=== PATIENT | female | born 1985 | race Caucasian/White ===

== ENCOUNTER 2020-04-04 05:14 | Inpatient (IN) | payer OTHER ==
[2020-04-04] MEDS ORDERED: LIDOCAINE 0.5% (PF) 5 MG/ML (50 ML SDV) SQ PRN (05:27)
[2020-04-04] MEDS ORDERED: METHYLERGONOVINE 0.2 MG/ML 1 ML AMP IM PRN (05:27)
[2020-04-04] MEDS ORDERED: CARBOPROST TROMETHAMINE 250 MCG/ML 1 ML AMP IM PRN (05:27)
[2020-04-04] MEDS ORDERED: TERBUTALINE 1 MG/ML VIAL SQ PRN (05:27)
[2020-04-04] MEDS ORDERED: OXYTOCIN 10 UNIT/ML 1 ML VIAL IM PRN (05:27)
[2020-04-04] MEDS: LACTATED RINGERS 1,000 ML IV SCH ×3 (05:57→06:44)
[2020-04-04 06:09] LABS: Basophils # (A) 0.1 k/uL (0-0.2); Basophils % (A) 1 %; Eosinophils # (A) 0.1 k/uL (0-0.7); Eosinophils % (A) 1 %; HCT 41.9 % (34.0-46.0); HGB 13.7 gm/dL (11.4-16.0); Lymphocytes % (A) 16 %; MCH 29.8 pg (25.0-35.0); MCHC 32.6 g/dL (31.0-37.0); MCV 91.3 fL (80.0-100.0); Monocytes # (A) 0.6 k/uL (0-1.0); Monocytes % (A) 5 %; Neutrophils # (A) 9.7 k/uL (1.3-7.7); Neutrophils % (A) 76 %; Platelet Count 189 k/uL (150-450); RBC 4.59 m/uL (3.80-5.40); RDW 13.4 % (11.5-15.5); WBC 12.6 k/uL (3.8-10.6)
[2020-04-04] MEDS ORDERED: SODIUM CHLORIDE 0.9% 100 ML BAG ONE (06:15)
[2020-04-04] MEDS ORDERED: fentaNYL (PF) 50 MCG/ML 5 ML AMP ONE (06:15)
[2020-04-04] MEDS ORDERED: ROPIVACAINE 5MG/ML 20ML VIAL ONE (06:15)
--- NOTE | 2020-04-04 08:14 | P.HPOB ---
History of Present Illness H&P Date: 04/04/20 Chief Complaint: Labor at 39-3/7 This is a 34-year-old 1 para 0 woman with an estimated due date of 04/08/2020 who presents in spontaneous active labor at 39-3/7 weeks gestation. She reports labor started at approximately 2 AM. She presented to labor and delivery triage she was uncomfortable and was actively laboring and found to be centimeters dilated. She denies leakage of fluid or vaginal bleeding. Her has been uncomplicated. She is known rubella nonimmune. Laboratory data: Group B strep negative, blood type O+, antibody screen negative, rubella nonimmune, VDRL nonreactive, hep B surface antigen negative, HIV negative, gonorrhea and clinic cultures negative, glucose tolerance testing within normal limits. Upon my initial evaluation patient is resting comfortably with an epidural in place and the cervix is completely dilated, 100% effaced and the vertex in the 0 station. Amniotic membranes or not palpated no as there any fluid on exam. heart tones are category 2. She is kevin every 1-3 minutes spontaneously. Review of Systems All systems: negative Past Medical History Past Medical History: No Reported History History of Any Multi-Drug Resistant Organisms: None Reported Additional Past Surgical History / Comment(s): [place] tooth extraction Past Anesthesia/Blood Transfusion Reactions: No Reported Reaction Past Psychological History: No Psychological Hx Reported Smoking Status: Never smoker Past Drug Use History: None Reported - Past Family History Mother Additional Family Medical History / Comment(s): Lupus, Fibromyalgia, Stent placement Father Family Medical History: Diabetes Mellitus Brother(s) Additional Family Medical History / Comment(s): Depression Medications and Allergies Home Medications Medication Instructions Recorded Confirmed Type Pnv No.95/Ferrous Fum/Folic AC 1 each PO DAILY 04/04/20 04/04/20 History [ Multivitamin Tablet] Allergies Allergy/AdvReac Type Severity Reaction Status Date / Time No Known Allergies Allergy Verified 04/04/20 05:26 Exam Vital Signs Temp Pulse Resp BP 04/04/20 05:50 97.9 F 83 18 148/89 Intake and Output 04/03/20 04/04/20 04/04/20 22:59 06:59 14:59 Other: # Voids 2 Weight 87.09 kg Results Result Diagrams: 04/04/20 05:45 Abnormal Lab Results - Last 24 Hours (Table) 04/04/20 Range/Units 05:45 WBC 12.6 H (3.8-10.6) k/uL Neutrophils # 9.7 H (1.3-7.7) k/uL Assessment and Plan (1) Spontaneous onset of labor Current Visit: Yes Status: Acute Code(s): OMQ6202 - SNOMED Code(s): 8 6354224 (2) Term Current Visit: Yes Status: Acute Code(s): Z34.90 - ENCNTR FOR SUPRVSN OF NOR MAL , UNSP, UNSP TRIMESTER SNOMED Code(s): 31133259 (3) Rubella non-immune status, antepartum Current Visit: Yes Status: Acute Code(s): O99.89 - OTH DISEASES AND CONDI TIONS COMPL PREG/CHLDBRTH; Z28.3 - UNDERIMMUNIZATION STATUS SNOMED Code(s): 077905566 Plan: 34-year-old 1 para 0 woman at 39-3/7 weeks gestation in advanced active labor. Rubella nonimmune. Possible prolonged rupture of membranes, patient did not experience any obvious gross rupture of membranes. She is group B strep negative. We will alert pediatricians. heart tones currently category 2 with occasional late appearing heart rate deceleration in the setting of otherwise good variability. Anticipate normal spontaneous vaginal delivery.
[2020-04-04] MEDS ORDERED: LANOLIN CREAM 5 GM TUBE TOPICAL PRN (09:11)
[2020-04-04] MEDS ORDERED: BENZOCAINE/MENTHOL SPRAY 1 GM/SPRAY AEROSOL TOPICAL PRN (09:11)
[2020-04-04] MEDS ORDERED: diphenhydrAMINE 50 MG CAP PO PRN (09:11)
[2020-04-04] MEDS ORDERED: HYDROCORTISONE 2.5% RECTAL CREAM 30 GM TUBE RECTAL PRN (09:11)
[2020-04-04] MEDS ORDERED: diphenhydrAMINE 50 MG/ML 1 ML VIAL IVP PRN ×2 (09:11)
[2020-04-04] MEDS ORDERED: MEASLES-MUMPS-RUBELLA VACC/PF 12,500 UNIT/0.5 ML VIAL SQ ONE (09:11)
[2020-04-04] MEDS ORDERED: diphenhydrAMINE 25 MG CAP PO PRN (09:11)
[2020-04-04] MEDS ORDERED: ZOLPIDEM 5 MG TAB PO PRN (09:11)
[2020-04-04] MEDS ORDERED: ACETAMINOPHEN TAB 325 MG TAB PO PRN (09:11)
[2020-04-04] MEDS ORDERED: SIMETHICONE 80 MG CHEWABLE PO PRN (09:11)
--- NOTE | 2020-04-04 09:11 | P.PN ---
Progress Note - Text Progress Note Date: 04/04/20 Findings: Male infant in the vertex left occiput anterior position with Apgars of 8 at 1 minute and 9 at 5 minutes weighing 7 lbs. 9 oz., 3450 g. Intact, three-vessel cord placenta with excessive calcifications. Secondary perineal laceration. EBL approximately 300 mL's. Delivery summary: This is a 34-year-old 1 para 0 woman who was admitted in active labor at 39-3/7 weeks gestation. Upon presentation was 3-4 cm dilated. Of note no amniotic fluid was noted nor were membranes were the patient denies event consistent with spontaneous rupture of membranes. She did have a rapid progression to complete cervical dilation after she received an epidural anesthetic. She commenced pushing with maternal effort. heart tones were category 2 secondary to occasional late appearing heart rate decelerations in the setting of otherwise good heart rate variability. Wi th maternal effort the patient did push to . At that time she was repositioned prepped and draped in the modified Holly position. With additional maternal effort the head delivered from the left occiput anterior position. This is followed easily by the anterior and posterior shoulders. The rest the infant was delivered onto the field and the nose and mouth were bulb suctioned. The infant was placed on the maternal abdomen. After an appropriate length of time the cord was clamped and cut. The perineum was inspected and a second-degree lacerations were noted. This was infused with lidocaine and repaired with 3-0 Vicryl suture in the usual fashion. An intact, three-vessel cord placenta was then delivered. There was some mild uterine atony post delivery of the placenta. This was managed with bilateral massage, Pitocin intravenously and a single dose of IM Methergine. The uterus became quite firm. EBL from my estimate was proxy 300 mL's. The bladder was drained for approximately 100 mL's of clear urine. The vagina cervix and perineum were further inspected no further lacerations or bleeding was noted. Both mother and were post doing well post delivery in the room. All counts were correct.
[2020-04-04] MEDS ORDERED: OXYTOCIN 20 UNITS/1000 ML NS 1,000 ML IV SCH (09:15)
[2020-04-04] MEDS: IBUPROFEN 600 MG TAB PO PRN ×2 (09:51→16:42)
[2020-04-04] MEDS: SENNOSIDES-DOCUSATE SODIUM 1 EACH TAB PO SCH (19:48)
[2020-04-05] MEDS: IBUPROFEN 600 MG TAB PO PRN ×2 (02:34→12:44)
[2020-04-05 06:19] LABS: Basophils % (A) 0 %; Eosinophils # (A) 0.1 k/uL (0-0.7); Eosinophils % (A) 0 %; HCT 34.4 % (34.0-46.0); Lymphocytes # (A) 1.6 k/uL (1.0-4.8); Lymphocytes % (A) 14 %; MCH 30.2 pg (25.0-35.0); MCV 94.4 fL (80.0-100.0); Mean Platelet Volume 11.7; Monocytes # (A) 0.6 k/uL (0-1.0); Monocytes % (A) 5 %; Neutrophils # (A) 9.3 k/uL (1.3-7.7); Neutrophils % (A) 80 %; Platelet Count 160 k/uL (150-450); RBC 3.64 m/uL (3.80-5.40); RDW 13.4 % (11.5-15.5); WBC 11.6 k/uL (3.8-10.6)
[2020-04-05 07:56] LABS: Large Platelets Present
--- NOTE | 2020-04-05 08:55 | P.DS ---
Providers Date of admission: 04/04/20 05:14 Expected date of discharge: 04/05/20 Attending physician: Kathy Angel Primary care physician: Dave Marshall - Discharge Diagnosis(es) (1) Spontaneous onset of labor Current Visit: Yes Status: Acute (2) Term Current Visit: Yes Status: Acute (3) Rubella non-immune status, antepartum Current Visit: Yes Status: Acute (4) Normal spontaneous vaginal delivery Current Visit: Yes Status: Acute (5) Perineal laceration with delivery, second degree Current Visit: Yes Status: Acute Hospital Course: This is a 34-year-old 1 now para 1 woman who was admitted in spontaneous active labor at 39-3/7 weeks gestation. She is possibly 3-4 cm dilated upon admission. She received an epidural anesthetic and had very rapid progression to complete cervical dilation. Of note on no membranes were palpable by me upon my initial assessment when she was completely dilated and the patient did not report remembering rupture of membranes event. Attention her white blood count was normal and she was afebrile. heart tones were category 2 secondary to some on occasional late appearing decelerations and an overall otherwise reassuring tracing with good variability. She went on to have a rapid delivery of a liveborn male infant over a secondary perineal laceration with Apgars of 8 at 1 minute and 9 at 5 minutes. Please see the delivery summary for details. The patient's course was unremarkable. By day #1 she was ambulating and voiding without difficulty, she was tolerating a general diet and her lochia was decreasing. Infant was doing well. Circumcision was performed. Patient was discharged home with routine instructions for care and follow-up. Addendum: After counseling the patient on discharge is much my attention that cultures are pending for the infant secondary to possibility of prolonged rupture of membranes. On should the pediatricians hold the infant's discharge to await culture results the patient will stay and be discharged tomorrow. Procedures: Normal spontaneous vaginal delivery Patient Condition at Discharge: Good Plan - Discharge Summary New Discharge Prescriptions: No Action Pnv No.95/Ferrous Fum/Folic AC [ Multivitamin Tablet] 1 each PO DAILY Discharge Medication List Pnv No.95/Ferrous Fum/Folic AC [ Multivitamin Tablet] 1 each PO DAILY 04/04/20 [History] Follow up Appointment(s)/Referral(s): Kathy Angel MD [STAFF PHYSICIAN] - 6 Weeks Activity/Diet/Wound Care/Special Instructions: Follow-up in the office in 6 weeks . Call with any concerning signs or symptoms including heavy vaginal bleeding, severe abdominal pain, fever greater than 101, swelling or redness of the lower extremities, foul vaginal discharge, or signs of depression. Nothing in the vagina for 6 weeks after delivery, specifically no intercourse. May use [id number] ibuprofen and/or Tylenol as needed for pain. May use [id number] stool softener once or twice a day as needed. Discharge Disposition: HOME SELF-CARE
[2020-04-05] MEDS: SENNOSIDES-DOCUSATE SODIUM 1 EACH TAB PO SCH ×2 (09:17→19:40)
[2020-04-06] MEDS: SENNOSIDES-DOCUSATE SODIUM 1 EACH TAB PO SCH (09:43)
[2020-04-06] MEDS: IBUPROFEN 600 MG TAB PO PRN (09:43)
[2020-04-06 10:53] VITALS: BP 111/64; PULSE 76; RESP 18; TEMP 97.8
== END 2020-04-06 15:30 | disposition home or self-care (01) | DRG 807 ==
LOC: 4FBP 05:14 → MERGE 04-08 14:55
PROVIDERS: ADMIT Obstetrics & Gynecology; ATTEND Obstetrics & Gynecology
DX: O76 Abnormality in fetal heart rate and rhythm complicating labor and delivery (principal); Z37.0 Single live birth; O62.2 Other uterine inertia; O62.3 Precipitate labor; Z23 Encounter for immunization; Z28.3 Underimmunization status; O70.1 Second degree perineal laceration during delivery; Z3A.39 39 weeks gestation of pregnancy; Z79.899 Other long term (current) drug therapy; Z82.69 Family history of other diseases of the musculoskeletal system and connective tissue; Z83.3 Family history of diabetes mellitus; Z81.8 Family history of other mental and behavioral disorders
CPT/HCPCS: 85025; 86850; 86900; 86901; 88307; 90707

== ENCOUNTER 2023-02-05 05:57 | Inpatient (IN) | payer BC ==
[2023-02-05] MEDS ORDERED: TERBUTALINE 1 MG/ML VIAL SQ PRN (06:14)
[2023-02-05] MEDS ORDERED: miSOPROStoL 200 MCG TAB PO PRN (06:14)
[2023-02-05] MEDS ORDERED: CARBOPROST TROMETHAMINE 250 MCG/ML 1 ML AMP IM PRN (06:14)
[2023-02-05] MEDS ORDERED: TRANEXAMIC 1,000 MG/100ML-NACL 1,000 MG in EMPTY BAG 1 BAG IV PRN (06:14)
[2023-02-05] MEDS ORDERED: METHYLERGONOVINE 0.2 MG/ML 1 ML AMP IM PRN (06:14)
[2023-02-05] MEDS ORDERED: OXYTOCIN 10 UNIT/ML 1 ML VIAL IM PRN (06:14)
[2023-02-05] MEDS ORDERED: LIDOCAINE 0.5% (PF) 5 MG/ML (50 ML SDV) SQ PRN (06:14)
[2023-02-05] MEDS ORDERED: OXYTOCIN 30 UNITS/500 ML NS 30 UNIT in SALINE 1 500ML.BAG IV SCH ×2 (06:15→12:30)
[2023-02-05] MEDS: LACTATED RINGERS 1,000 ML IV SCH ×3 (06:17→11:23)
[2023-02-05 06:33] LABS: Basophils % (A) 0 %; Eosinophils # (A) 0.1 k/uL (0-0.7); Eosinophils % (A) 1 %; HCT 39.7 % (34.0-46.0); HGB 13.4 gm/dL (11.4-16.0); Lymphocytes # (A) 1.7 k/uL (1.0-4.8); Lymphocytes % (A) 22 %; MCH 30.8 pg (25.0-35.0); MCHC 33.8 g/dL (31.0-37.0); MCV 90.9 fL (80.0-100.0); Mean Platelet Volume 10.7; Monocytes # (A) 0.4 k/uL (0-1.0); Monocytes % (A) 5 %; Neutrophils # (A) 5.7 k/uL (1.3-7.7); Neutrophils % (A) 71 %; Platelet Count 208 k/uL (150-450); RBC 4.37 m/uL (3.80-5.40); RDW 13.8 % (11.5-15.5); WBC 8.1 k/uL (3.8-10.6)
[2023-02-05] MEDS ORDERED: fentaNYL (PF) 50 MCG/ML 5 ML AMP ONE (10:25)
[2023-02-05] MEDS ORDERED: ROPIVACAINE 5 MG/ML 20 ML AMPULE ONE (10:25)
[2023-02-05] MEDS ORDERED: SODIUM CHLORIDE 0.9% 100 ML BAG ONE (10:25)
--- NOTE | 2023-02-05 12:13 | P.HPOB ---
History of Present Illness H&P Date: 02/05/23 Chief Complaint: Postdates This is a 37-year-old para 1011 woman with an estimated due date of 02/02/2023 based on LMP consistent with first trimester ultrasound. She is admitted at 40-3/7 weeks gestation for postdates induction of labor and findings of oligo hydramnios on ultrasound. She has had mild -induced hypertension managed with labetalol 100 mg twice a day no evidence of the preeclampsia. She has had reassuring testing until and DEANDRE yesterday showed 4 cm of fluid. The tissue was therefore scheduled for induction of labo r. She had a reactive NST. Obstetric history significant for a term normal spontaneous vaginal delivery in 2019 of a 7 lbs. 9 oz. and in early on first trimester voluntary interruption of . Laboratory data: She is group B strep negative. Blood type O+, antibody screen negative, rubella immune, VDRL nonreactive, hepatitis B surface antigen negative, HIV negative Review of Systems All systems: negative Past Medical History Past Medical History: No Reported History History of Any Multi-Drug Resistant Organisms: None Reported Additional Past Surgical History / Comment(s): [place] tooth extraction Past Anesthesia/Blood Transfusion Reactions: No Reported Reaction Past Psychological History: No Psychological Hx Reported Smoking Status: Never smoker Past Drug Use History: None Reported - Past Family History Mother Additional Family Medical History / Comment(s): Lupus, Fibromyalgia, Stent pl acement Father Family Medical History: Diabetes Mellitus Brother(s) Additional Family Medical History / Comment(s): Depression Medications and Allergies Home Medications Medication Instructions Recorded Confirmed Type Pnv No.95/Ferrous Fum/Folic AC 1 each PO DAILY 04/04/20 04/04/20 History [ Multivitamin Tablet] Allergies Allergy/AdvReac Type Severity Reaction Status Date / Time No Known Allergies Allergy Verified 02/05/23 06:05 Exam Vital Signs Temp Pulse Resp BP Pulse Ox 02/05/23 11:59 97.4 F L 62 18 118/71 99 02/05/23 06:05 97.9 F 80 16 131/87 97 Intake and Output 02/04/23 02/05/23 02/05/23 22:59 06:59 14:59 Other: Weight 94.801 kg Targeted physical exam is performed. This is a pleasant, visibly gravid female in no apparent distress. On pelvic examination the cervix is 3-4 cm dilated, 70% effaced and the vertex in the -3 station. Artificial rupture of membranes is attempted and scant fluid is obtained. heart tones are category 1 and she is kevin every 2-4 minutes with Pitocin augme ntation. Results Result Diagrams: 02/05/23 06:18 Assessment and Plan (1) Term Current Visit: No Status: Acute Code(s): Z34.90 - ENCNTR FOR SUPRVSN OF NORMAL , UNSP, UNSP TRIMESTER SNOMED Code(s): 14948667 (2) Oligohydramnios Current Visit: Yes Status: Acute Code(s): O41.00X0 - OLIGOHYDRAMNIOS, UNSP TRIMESTER, NOT APPLICABLE OR UNSP SNOMED Code(s): 56422181 (3) induced hypertension Current Visit: Yes Status: Acute Code(s): O13.9 - GESTATIONAL HTN W/O SIGNIFICANT PROTEINURIA, UNSP TRIMESTER SNOMED Code(s): 96123666 Plan: 37-year-old 3 para 1 woman admitted at 40-3/7 weeks gestation for induction of labor secondary to postdates and oligohydramnios. status is currently reassuring by external monitoring. She may have an epidural anesthetic upon demand in active labor. Anticipate normal spontaneous vaginal delivery.
[2023-02-05] MEDS ORDERED: diphenhydrAMINE 50 MG CAP PO PRN (12:16)
[2023-02-05] MEDS ORDERED: BENZOCAINE/MENTHOL SPRAY 1 GM/SPRAY AEROSOL TOPICAL PRN (12:16)
[2023-02-05] MEDS ORDERED: ACETAMINOPHEN ORAL SUSP 160 MG/5 ML CUP PO PRN (12:16)
[2023-02-05] MEDS ORDERED: SIMETHICONE 80 MG CHEWABLE PO PRN (12:16)
[2023-02-05] MEDS ORDERED: diphenhydrAMINE 25 MG CAP PO PRN (12:16)
[2023-02-05] MEDS ORDERED: HYDROCORTISONE 2.5% RECTAL CREAM 30 GM TUBE RECTAL PRN (12:16)
[2023-02-05] MEDS ORDERED: LANOLIN CREAM 5 GM TUBE TOPICAL PRN (12:16)
[2023-02-05] MEDS ORDERED: diphenhydrAMINE 50 MG/ML 1 ML VIAL IVP PRN ×2 (12:16)
[2023-02-05] MEDS ORDERED: ZOLPIDEM 5 MG TAB PO PRN (12:16)
--- NOTE | 2023-02-05 12:16 | P.PROBDLV ---
Vaginal Delivery Note - . Vaginal Delivery Note: Findings: Female in the vertex presentation with Apgars of 7 at 1 minute and 9 at 5 minutes weighing 6 lbs. 14 oz., 3150 g. Intact, three-vessel cord placenta. The infant was delivered within the amniotic membranes that were then removed after delivery. Clear fluid was noted. EBL approximately 200 mL's. Delivery summary summary: This is a 37-year-old 3 para 1 woman who is admitted at 40-3/7 weeks gestation for induction of labor secondary to postdates and oligohydramnios. Following admission Pitocin induction was initiated. She underwent artificial rupture of membranes however scant fluid was noted. heart tones were category 1 throughout her labor. When she progressed to 5 cm dilated she did receive an epidural anesthetic. Approximately half an hour later she had strong urge to push and was noted to be completely dilated. At t hat time she was repositioned in the modified Holly position, prepped and draped. With additional maternal effort the head did crown. Amniotic membranes were noted to still be intact. With further maternal efforts of 1 push the rest the infant was delivered over second-degree perineal laceration. The infant was an call and the membranes were ruptured and removed from the . Nose and mouth were bulb suctioned. The infant was placed on the maternal abdomen. The cord was clamped and cut. The perineum was inspected and a second-degree laceration was noted. This was repaired with 3-0 Vicryl suture in the usual fashion. An intact, three-vessel cord placenta was then expressed and the uterus was massaged. It was noted to be firm at the level of the umbilicus. She received Pitocin during the third stage of labor. The vagina and cervix were reinspected and no further lacerations were noted. Both mother and infant were doing well post delivery in the room. All counts were correct.
[2023-02-05] MEDS: IBUPROFEN 600 MG TAB PO PRN (16:18)
[2023-02-05] MEDS: SENNOSIDES-DOCUSATE SODIUM 1 EACH TAB PO SCH (20:04)
[2023-02-05] MEDS: ACETAMINOPHEN TAB 325 MG TAB PO PRN (20:04)
[2023-02-06] MEDS: IBUPROFEN 600 MG TAB PO PRN (01:38)
[2023-02-06 01:41] VITALS: RESP 16
[2023-02-06 07:06] LABS: Basophils % (A) 0 %; Eosinophils # (A) 0.1 k/uL (0-0.7); Eosinophils % (A) 1 %; HGB 12.9 gm/dL (11.4-16.0); Lymphocytes # (A) 1.5 k/uL (1.0-4.8); Lymphocytes % (A) 16 %; MCH 30.7 pg (25.0-35.0); MCHC 33.9 g/dL (31.0-37.0); MCV 90.7 fL (80.0-100.0); Mean Platelet Volume 9.6; Monocytes # (A) 0.4 k/uL (0-1.0); Monocytes % (A) 5 %; Neutrophils # (A) 7.5 k/uL (1.3-7.7); Neutrophils % (A) 78 %; Platelet Count 200 k/uL (150-450); RBC 4.19 m/uL (3.80-5.40); RDW 13.9 % (11.5-15.5); WBC 9.6 k/uL (3.8-10.6)
[2023-02-06] MEDS: ACETAMINOPHEN TAB 325 MG TAB PO PRN (07:09)
--- NOTE | 2023-02-06 08:09 | P.DS ---
Providers Date of admission: 02/05/23 05:57 Expected date of discharge: 02/06/23 Attending physician: Kathy Angel Primary care physician: Stated None - Discharge Diagnosis(es) (1) Term Current Visit: No Status: Acute (2) Oligohydramnios Current Visit: Yes Status: Acute (3) induced hypertension Current Visit: Yes Status: Acute (4) Normal spontaneous vaginal delivery Current Visit: No Status: Acute (5) Perineal laceration with delivery, second degree Current Visit: No Status: Acute Hospital Course: This is a 37-year-old 3 now para 2 woman who presented at 40-3/7 weeks gestation for induction of labor secondary to postdates and oligohydramnios. Following admission she went underwent a Pitocin induction of labor and artificial rupture of membranes with scant fluid obtained. She requested and received an epidural in active labor. She then had rapid progression to complete cervical dilation. She had an uncomplicated delivery of a liveborn female infant over a second-degree perineal laceration with Apgars of 7 at 1 minute and 9 at 5 minutes weighing 6 lbs. 14 oz. Please see the delivery summary for details. The patient's course was unremarkable. By day #1 she was ambulating and voiding without difficulty. Her lochia was moderate. She was breast-feeding successfully. She was therefore discharged home with routine instructions for care and follow-up. Patient Condition at Discharge: Good Plan - Discharge Summary New Discharge Prescriptions: No Action Pnv No.95/Ferrous Fum/Folic AC [ Multivitamin Tablet] 1 each PO DAILY Discharge Medication List Pnv No.95/Ferrous Fum/Folic AC [ Multivitamin Tablet] 1 each PO DAILY 04/04/20 [History] Follow up Appointment(s)/Referral(s): Kathy Angel MD [STAFF PHYSICIAN] - 6 Weeks Activity/Diet/Wound Care/Special Instructions: Follow-up in the office in 6 weeks . Call with any concerning signs or symptoms including heavy vaginal bleeding, severe abdominal pain, fever greater than 101, swelling or redness of the lower extremities, foul vaginal discharge, or signs of depression. May use [id number] ibuprofen and/or Tylenol as needed for pain. Nothing in the vagina for 6 weeks after delivery, specifically no intercourse. Discharge Disposition: HOME SELF-CARE
[2023-02-06] MEDS: LACTATED RINGERS 1,000 ML IV SCH (08:15)
[2023-02-06] MEDS: SENNOSIDES-DOCUSATE SODIUM 1 EACH TAB PO SCH (08:15)
[2023-02-06 08:20] VITALS: BP 132/77; PULSE 97; TEMP 98.2
== END 2023-02-06 12:14 | disposition home or self-care (01) | DRG 807 ==
LOC: 4FBP 05:57
PROVIDERS: ADMIT Obstetrics & Gynecology; ATTEND Obstetrics & Gynecology
PROC: 10E0XZZ Delivery of Products of Conception, External Approach (ICD-10-PCS; principal; 2023-02-05)
PROC: 0KQM0ZZ Repair Perineum Muscle, Open Approach (ICD-10-PCS; principal; 2023-02-05)
PROC: 3E033VJ Introduction of Other Hormone into Peripheral Vein, Percutaneous Approach (ICD-10-PCS; 2023-02-05)
PROC: 10907ZC Drainage of Amniotic Fluid, Therapeutic from Products of Conception, Via Natural or Artificial Opening (ICD-10-PCS; 2023-02-05)
DX: O41.03X0 Oligohydramnios, third trimester, not applicable or unspecified (principal); Z37.0 Single live birth; O13.4 Gestational [pregnancy-induced] hypertension without significant proteinuria, complicating childbirth; O48.0 Post-term pregnancy; Z3A.40 40 weeks gestation of pregnancy; O70.1 Second degree perineal laceration during delivery; Z28.310 Unvaccinated for COVID-19; Z79.899 Other long term (current) drug therapy
CPT/HCPCS: 85025; 86850; 86900; 86901